=== PATIENT | male | born 1955 | race Caucasian/White ===

== ENCOUNTER 2020-04-03 17:39 | Emergency (ER) | payer SELFPAY ==
--- NOTE | 2020-04-03 18:46 | ER Document Report ---
ED Medical Screen (RME) - General Chief Complaint: Near Syncope Stated Complaint: NEAR SYNCOPE Time Seen by Provider: 04/03/20 18:43 Primary Care Provider: MARIELLE ALVAREZ MD [Primary Care Provider] - Follow up as needed Mode of Arrival: Wheelchair Information source: Patient Notes: 65-year-old male presented to ED for complaint of near syncope about an hour and a half ago so he had his son bring him to the emergency room. He states last Friday he had chest pain he went to [facility] and was kept overnight and then on they did a heart catheterization and discharged him afternoon. They told him that everything was okay there was no problems with his heart they did increase his metoprolol from 30-60 then about an hour and a half ago he had the dizziness lightheadedness the numbness to the right groin stinging stinging in the right buttocks and a little bit of slurred speech. He states he could not get his words out for a few minutes. He states he still has a little bit of the residual feeling of numbness and lightheadedness but none of the other symptoms. He states he is on Plavix and metoprolol. He states he still does have a mild headache but is speaking in full sentences. I have greeted and performed a rapid initial assessment of this patient. A comprehensive ED assessment and evaluation of the patient, analysis of test results and completion of medical decision making process will be conducted by an additional ED providers. Physical Exam - Vital signs Vitals: Temp Pulse Resp BP Pulse Ox 97.8 F 66 18 125/89 H 97 04/03/20 17:53 04/03/20 17:53 04/03/20 17:53 04/03/20 17:53 04/03/20 17:53 Course - Vital Signs Vital signs: Temp Pulse Resp BP Pulse Ox 97.8 F 66 18 125/89 H 97 04/03/20 17:53 04/03/20 17:53 04/03/20 17:53 04/03/20 17:53 04/03/20 17:53 Doctor's Discharge - Discharge Referrals: MARIELLE ALVAREZ MD [Primary Care Provider] - Follow up as needed
--- NOTE | 2020-04-03 19:07 | RADIOLOGY REPORT (SQ) ---
EXAM DESCRIPTION: CT HEAD WITHOUT IMAGES COMPLETED DATE/TIME: 04/03/2020 6:55 pm REASON FOR STUDY: Near syncope, slurred speech, lightheaded COMPARISON: None. TECHNIQUE: Axial images acquired through the brain without intravenous contrast. Images reviewed wi th bone, brain and subdural windows. Additional sagittal and coronal reconstructions were generated. Images stored on PACS. All CT scanners at this facility use dose modulation, iterative reconstruction, and/or weight based d osing when appropriate to reduce radiation dose to as low as reasonably achievable (ALARA). [facility]: Dose Right [facility]: CareDose [facility]: Dose Right [facility]: Teradose 4D [facility]: Smart [employer] RADIATION DOSE: CT Rad equipment meets quality standard of care and radiation dose reduction techniq ues were employed. CTDIvol: 53.2 mGy. DLP: 1070 mGy-cm. mGy. LIMITATIONS: None. FINDINGS: VENTRICLES: Normal size and contour. CEREBRUM: No masses. No hemorrhage. No midline shift. No evidence for acute infarction. Normal gra y/white matter differentiation. No areas of low density in the white matter. CEREBELLUM: No masses. No hemorrhage. No alteration of density. No evidence for acute infarction. EXTRAAXIAL SPACES: No fluid collections. No masses. ORBITS AND GLOBE: No intra- or extraconal masses. Normal contour of globe without masses. CALVARIUM: No fracture. PARANASAL SINUSES: No fluid or mucosal thickening. SOFT TISSUES: No mass or hematoma. OTHER: No other significant finding. IMPRESSION: NORMAL BRAIN CT WITHOUT CONTRAST. EVIDENCE OF ACUTE STROKE: NO. COMMENT: Pertinent positive or negative findings of the imaging study reported as a CRITICAL EXAM t o ED STAFF at19:00 on 04/03/2020. Category of Critical Exam: Stroke alert. Quality ID # [id number]: Final reports with documentation of one or more dose reduction techniques (e.g., Au tomated exposure control, adjustment of the mA and/or kV according to patient size, use of iterative reconstruction technique) TECHNICAL DOCUMENTATION: JOB ID: [id number] 2010 [employer]- All Rights Reserved Reading location - IP/workstation name: [email or web address]
--- NOTE | 2020-04-03 19:11 | RADIOLOGY REPORT (SQ) ---
EXAM DESCRIPTION: CHEST SINGLE VIEW IMAGES COMPLETED DATE/TIME: 04/03/2020 7:01 pm REASON FOR STUDY: Stroke protocol COMPARISON: None. EXAM PARAMETERS: NUMBER OF VIEWS: One view. TECHNIQUE: Single frontal radiographic view of the chest acquired. RADIATION DOSE: NA LIMITATIONS: None. FINDINGS: LUNGS AND PLEURA: No opacities, masses or pneumothorax. No pleural effusion. MEDIASTINUM AND HILAR STRUCTURES: No masses. Contour normal. HEART AND VASCULAR STRUCTURES: Heart normal in size. Normal vasculature. BONES: No acute findings. HARDWARE: Sternotomy wires. OTHER: No other significant finding. IMPRESSION: NO ACUTE RADIOGRAPHIC FINDING IN THE CHEST. TECHNICAL DOCUMENTATION: JOB ID: [id number] 2010 [employer]- All Rights Reserved Reading location - IP/workstation name: [email or web address]
--- NOTE | 2020-04-03 19:30 | ER Document Report ---
ED General - General Chief Complaint: Dizziness Stated Complaint: NEAR SYNCOPE Time Seen by Provider: 04/03/20 18:43 Primary Care Provider: MARIELLE ALVAREZ MD [[facility]] - Follow up as needed BETH GALVEZ MD [NO LOCAL MD] - Follow up as needed Mode of Arrival: Wheelchair Information source: Patient TRAVEL OUTSIDE OF THE [place] IN LAST 30 DAYS: No - HPI Onset: Just prior to arrival - 1.5-2 hours prior to ER arrival Onset/Duration: Sudden Quality of pain: No pain Severity: Mild Pain Level: Denies Associated symptoms: Other - bilateral numbness initially but now only right sided numbness Exacerbated by: Denies Relieved by: Denies Similar symptoms previously: No Recently seen / treated by doctor: No Notes: 65 year old male with a history of CAD s/p CABG over a year ago, HTN, HLD who recently had a positive stress test and follow up cardiac cath needing no intervention last week here in the ER for numbness of his right side (started on both sided but is now improved and only on his right side), mild dizziness, and mild word finding difficulty which started about 2 hours prior to ER arrival. The patient says all of his symptoms improved prior to ER arrival but he still has some mild residual right face, arm, and leg numbness. The patient is on aspirin and plavix and he has taken both today. - Related Data Allergies/Adverse Reactions: No Known Allergies Allergy (Unverified 04/03/20 18:45) Home Medications: Plavix. Metoprolol. Lisinopril. Isorbmonotrate. Prilosec. B12. ASA. Atorvastatin Past Medical History - General Information source: Patient - Social History Smoking Status: Former Smoker Chew tobacco use (# tins/day): No Frequency of alcohol use: None Drug Abuse: None Lives with: Family Family History: Reviewed & Not Pertinent Patient has suicidal ideation: No Patient has homicidal ideation: No - Past Medical History Cardiac Medical History: Reports: Hx Coronary Artery Disease, Hx Hypercholesterolemia, Hx Hypertension Review of Systems - Review of Systems Constitutional: No symptoms reported EENT: No symptoms reported Cardiovascular: No symptoms reported Respiratory: No symptoms reported Gastrointestinal: No symptoms reported Genitourinary: No symptoms reported Male Genitourinary: No symptoms reported Musculoskeletal: No symptoms reported Skin: No symptoms reported Hematologic/Lymphatic: No symptoms reported Neurological/Psychological: Other - Dizziness (resolved), Bilateral numbness initially but now only on the right, Word finding difficulty -: Yes All other systems reviewed and negative Physical Exam - Vital signs Vitals: Temp Pulse Resp BP Pulse Ox 97.8 F 66 18 125/89 H 97 04/03/20 17:53 04/03/20 17:53 04/03/20 17:53 04/03/20 17:53 04/03/20 17:53 - Notes Notes: GENERAL: Well-appearing, well-nourished and in no acute distress. HEAD: Atraumatic, normocephalic. EYES: Pupils equal round and reactive to light, extraocular movements intact, sclera anicteric, conjunctiva are normal. ENT: External ears normal, nares patent, oropharynx clear without exudates. Moist mucous membranes. NECK: Normal range of motion, supple without lymphadenopathy or JVD. LUNGS: Breath sounds clear to auscultation bilaterally and equal. No wheezes rales or rhonchi. HEART: Regular rate and rhythm without murmurs, rubs or gallops. ABDOMEN: Soft, nontender, normoactive bowel sounds. No guarding, no rebound. No masses appreciated. EXTREMITIES: Normal range of motion, no pitting or edema. No clubbing or cyanosis. NEUROLOGICAL: Cranial nerves II through XII grossly intact. Mild right numbness in face, arm, leg. Normal speech, normal gait. NIH stroke scale of 1 for sens ation loss. PSYCH: Normal mood, normal affect. SKIN: Warm, Dry, normal turgor, no rashes or lesions noted. Course - Re-evaluation Re-evalutation: 04/03/20 21:34 The patient arrived within 1.5-2 hours of symptom onset so a stroke code was called. The patient's symptoms had improved prior to ER arrival. I consulted the provider vascular technologist sonographer for Neurology about TPA administration. Since the patient's symptoms have improved and since the patient has an NIH stroke scale of 1 (sensation loss) decision made not to give TPA. Patient's head CT showed no acute process. Labs were unremarkable. I consulted the Hospitalist (Dr. Dalton) for admission but he recommended obtaining an MRI of the head and making a disposition based on the MRI. 04/03/20 23:21 MRI shows no acute stroke. Patient's Mg was low so this was supped. Patient not feels completely back to normal. Either the patient had paresthesias from a low Mg or he has a TIA. Patient is already on ASA and Plavix, HTN meds and HLD meds. Patient told to follow up with his PCP and explain what was done today for him in the ER. - Vital Signs Vital signs: Temp Pulse Resp BP Pulse Ox 97.7 F 62 19 138/103 H 96 04/03/20 23:10 04/03/20 21:01 04/03/20 23:00 04/03/20 23:00 04/03/20 23:00 - Laboratory Result Diagrams: 04/03/20 19:50 04/03/20 19:50 Laboratory results interpreted by me: 04/03/20 19:50 Magnesium 1.5 L - Diagnostic Test Radiology reviewed: Image reviewed, Reports reviewed - EKG Interpretation by Me EKG shows normal: Sinus rhythm, Intervals, QRS Complexes Rate: Normal Rhythm: NSR [place]/QRS: Left axis deviation Additional EKG results interpreted by me: 04/03/20 19:13 q waves in III, aVF, V1-V4 Discharge - Discharge Clinical Impression: Numbness in right leg, Numbness and tingling of right arm, Numbness of face Condition: Stable Disposition: HOME, SELF-CARE Instructions: Dizziness ([facility]) Additional Instructions: Follow up with your primary care doctor and with a Neurologist. Continue taking Aspirin, Plavix, and your other previously prescribed medications. Tell your doctors you were in the ER today and you had a head CT, head MRI, blood work and EKG which were all within normal limits except for a slightly low Mg at 1.5. Referrals: MARIELLE ALVAREZ MD [[facility]] - Follow up as needed BETH GALVEZ MD [NO LOCAL MD] - Follow up as needed
[2020-04-03 20:14] LABS: ABSOLUTE EOSINOPHILS # (AUTO) 0.1 10^3/uL (0.0-0.6); ABSOLUTE LYMPHOCYTES (AUTO) 2.6 10^3/uL (0.5-4.7); ABSOLUTE MONOCYTES (AUTO) 0.7 10^3/uL (0.1-1.4); BASOPHILS % (AUTO) 0.4 % (0-2); EOSINOPHILS % (AUTO) 1.5 % (0-6); HEMATOCRIT 41.4 % (37.9-51.0); HEMOGLOBIN 14.8 g/dL (13.5-17.0); LYMPHOCYTES % (AUTO) 30.9 % (13-45); MEAN CORPUSCULAR HEMOGLOBIN 32.1 pg (27.0-33.4); MEAN CORPUSCULAR HGB CONC 35.8 g/dL (32.0-36.0); MEAN CORPUSCULAR VOLUME 90 fl (80-97); MONOCYTES % (AUTO) 8.1 % (3-13); PLATELET COUNT 184 10^3/uL (150-450); RED BLOOD COUNT 4.61 10^6/uL (4.35-5.55); RED CELL DISTRIBUTION WIDTH 13.9 % (11.5-14.0); SEGMENTED NEUTROPHILS % (AUTO) 59.1 % (42-78); TOTAL CELLS COUNTED % (AUTO) 100 %; WHITE BLOOD COUNT 8.4 10^3/uL (4.0-10.5)
[2020-04-03 20:19] LABS: INTERNATIONAL RATION (INR) 1.13; PROTHROMBIN TIME 14.6 SEC (11.4-15.4)
[2020-04-03 20:20] LABS: PARTIAL THROMBOPLASTIN TIME 26.9 SEC (23.5-35.8)
[2020-04-03 20:32] LABS: ALBUMIN 4.3 g/dL (3.5-5.0); ALKALINE PHOSPHATASE 72 U/L (38-126); ANION GAP 8 (5-19); ASPARTATE AMINO TRANSFERASE 33 U/L (17-59); BILIRUBIN,TOTAL 1.1 mg/dL (0.2-1.3); BLOOD UREA NITROGEN 12 mg/dL (7-20); CALCIUM 9.6 mg/dL (8.4-10.2); CARBON DIOXIDE 26 mmol/L (22-30); CHLORIDE 104 mmol/L (98-107); CREATINE KINASE 82 U/L (55-170); GLUCOSE 87 mg/dL (75-110); POTASSIUM 4.4 mmol/L (3.6-5.0); TOTAL PROTEIN 7.4 g/dL (6.3-8.2)
[2020-04-03 20:44] LABS: CREATINE KINASE MB 1.64 ng/mL (<4.55); TROPONIN I < 0.012 ng/mL
[2020-04-03] MEDS ORDERED: MAGNESIUM OXIDE 400 MG TABLET PO ONE (21:46)
--- NOTE | 2020-04-03 22:20 | RADIOLOGY REPORT (SQ) ---
MR BRAIN WITHOUT IV CONTRAST EXAM DATE: 04/03/2020 8:52 PM CDT HISTORY: Evaluate for stroke. Right sided numbness.. COMPARISON: None. TECHNIQUE: Multisequence, multiplanar MR imaging of the brain was performed without the administration of intravenous gadolinium. FINDINGS: Scattered areas of T2/FLAIR hyperintense foci are seen in the supratentorial white matter, likely representing chronic microvascular ischemia. There is no acute infarction, intracranial hemorrhage, extra-axial fluid collection, or mass. The orbits are unremarkable. The calvarium and skull base appear unremarkable. The paranasal sinuses are clear. IMPRESSION: 1. No acute infarct. 2. Senescent changes with chronic microvascular ischemia.
[2020-04-03 23:09] VITALS: BP 138/103
--- NOTE | 2020-04-04 08:01 | EKG REPORT ---
SEVERITY:- ABNORMAL ECG - SINUS RHYTHM INFERIOR INFARCT, AGE INDETERMINATE NONSPECIFIC ST-T CHANGES ANTERIOR LEADS LEFT ATRIAL ABNORMALITY : Confirmed by: Joaquin Kramer MD 04-Apr-2020 08:00:27
== END 2020-04-03 23:10 | disposition home or self-care (01) ==
LOC: ER 17:39
DX: R20.0 Anesthesia of skin (principal); R42 Dizziness and giddiness; R55 Syncope and collapse; I25.10 Atherosclerotic heart disease of native coronary artery without angina pectoris; I10 Essential (primary) hypertension; E78.00 Pure hypercholesterolemia, unspecified; Z95.1 Presence of aortocoronary bypass graft
CPT/HCPCS: 36415; 70450; 70551; 71045; 80053; 82550; 82553; 83735; 84484; 85025; 85610; 85730; 93005; 93010; 99285